=== PATIENT | male | born 1960 | race Native Hawaiian/Other Pacific Islander ===

== ENCOUNTER 2023-04-11 17:18 | Emergency (ER) | payer BC ==
[~2023-04-11] VITALS: Ht 172.7 cm; Wt 70.3 kg
[2023-04-11 17:22] VITALS: BP 123/80; TEMP 98.1
[2023-04-11 17:48] LABS: PLATELET COUNT 330 K/uL (142-355)
[2023-04-11 17:57] LABS: POTASSIUM 3.6 mmol/L (3.6-5.2)
[2023-04-11] MEDS ORDERED: MORPHINE SULFATE 10 MG ONE (18:30)
[2023-04-11] MEDS ORDERED: Ondansetron HCl 4 MG INJ INJ ONE (18:30)
[2023-04-11] MEDS ORDERED: MORPHINE SULFATE 4 MG INJ ONE (18:39)
[2023-04-11] MEDS ORDERED: SOD CHLORIDE 0.9% IV ONE (21:02)
[2023-04-11] MEDS ORDERED: CEFTRIAXONE SODIUM IV ONE (21:02)
[2023-04-11] MEDS ORDERED: CEFTRIAXONE SODIUM ONE (21:03)
[2023-04-11] MEDS ORDERED: SOD CHLORIDE 0.9% 100 ML IV ONE (21:06)
[2023-04-11] MEDS ORDERED: SODIUM CHLORIDE 0.9% 1,000 ML IV ONE (21:22)
== END 2023-04-11 22:20 | disposition short-term general hospital (02) ==
LOC: ED 17:18
PROVIDERS: Family Medicine
DX: R31.9 Hematuria, unspecified (principal); R10.32 Left lower quadrant pain; R10.31 Right lower quadrant pain; M54.89 Other dorsalgia; N30.81 Other cystitis with hematuria; N13.6 Pyonephrosis; K59.00 Constipation, unspecified; Z72.0 Tobacco use
CPT/HCPCS: 80053; 81000; 83690; 85027; 87040; 87077; 87088; 87186; 96361; 96365; 96374; 96375; 99284; J0696; J2270; J2405